=== PATIENT | female | born 1945 | race Caucasian/White ===

== ENCOUNTER 2016-08-04 21:07 | Inpatient (IN) | payer MEDICARE, OTHER ==
--- NOTE | 2016-08-04 21:42 | ED ---
Lower Extremity Injury HPI - General Chief Complaint: Extremity Injury, Lower Stated Complaint: fall Time Seen by Provider: 08/04/16 21:07 Source: patient, EMS, RN notes reviewed Mode of arrival: EMS Limitations: no limitations - History of Present Illness Initial Comments: 71-year-old female who states she broke stop left ankle she complains of left ankle pain and some left hip pain she did not fall hip over. She is was a head neck or back pain or extremity injury. She was given 100 g of fentanyl. She does admit to having several beers today MD Complaint: ankle injury - Related Data Home Medications Medication Instructions Recorded Confirmed No Known Home Medications [No 08/04/16 08/04/16 Known Home Medications] Allergies Allergy/AdvReac Type Severity Reaction Status Date / Time sulfamethoxazole Allergy Unknown Verified 08/04/16 21:32 [From Septra] trimethoprim [From Septra] Allergy Unknown Verified 08/04/16 21:32 propoxyphene [From Darvon] AdvReac "HEART Verified 08/04/16 21:32 RATE GOES UP" Review of Systems ROS Statement: Those systems with pertinent positive or pertinent negative responses have been documented in the HPI. ROS Other: All systems not noted in ROS Statement are negative. Past Medical History Past Medical History: Diabetes Mellitus, Hyperlipidemia Additional Past Medical History / Comment(s): Hepatitis A, Diet controlled DM, History of Any Multi-Drug Resistant Organisms: None Reported Past Surgical History: Orthopedic Surgery Additional Past Surgical History / Comment(s): R ankle surgery in 2007 Past Psychological History: No Psychological Hx Reported Smoking Status: Never smoker Past Alcohol Use History: Occasional Past Drug Use History: None Reported General Exam - General Exam Comments Initial Comments: This is a well-developed well-nourished awake alert oriented 3 female Limitations: no limitations General appearance: alert, in no apparent distress Head exam: Present: atraumatic, normocephalic, normal inspection Eye exam: Present: normal appearance, PERRL, EOMI. Absent: scleral icterus, conjunctival injection, periorbital swelling ENT exam: Present: normal exam, mucous membranes moist Neck exam: Present: normal inspection. Absent: tenderness, meningismus, lymphadenopathy Respiratory exam: Present: normal lung sounds bilaterally. Absent: respiratory distress, wheezes, rales, rhonchi, stridor Cardiovascular Exam: Present: regular rate, normal rhythm, normal heart sounds. Absent: systolic murmur, diastolic murmur, rubs, gallop, clicks GI/Abdominal exam: Present: soft, normal bowel sounds. Absent: distended, tenderness, guarding, rebound, rigid Extremities exam: Present: tenderness (Tenderness palpation over the left ankle with some edema noted also some ecchymosis to the medial aspect of the malleolus. No definite step-off or crepitation no tenderness proximal to the ankle no tenderness to the foot. Mild tenderness over left hip no step-off crepitation no shortening or rotation.), normal capillary refill. Absent: pedal edema, joint swelling, calf tenderness Back exam: Present: normal inspection Neurological exam: Present: alert, oriented X3, CN II-XII intact Psychiatric exam: Present: normal affect, normal mood Skin exam: Present: warm, dry, intact, normal color. Absent: rash Course Vital Signs 08/04/16 08/04/16 08/04/16 21:12 22:15 22:19 Temperature 98 F Pulse Rate 78 79 79 Respiratory 17 18 16 Rate Blood Pressure 205/99 187/88 182/86 O2 Sat by Pulse 97 100 100 Oximetry 08/04/16 08/04/16 08/04/16 22:24 22:29 22:44 Temperature Pulse Rate 66 65 75 Respiratory 17 16 16 Rate Blood Pressure 131/71 129/79 207/92 O2 Sat by Pulse 100 100 97 Oximetry 08/04/16 22:59 Temperature Pulse Rate 97 Respiratory 16 Rate Blood Pressure 172/85 O2 Sat by Pulse 97 Oximetry - Reevaluation(s) Reevaluation #1: 08/04/16 23:32 I did discuss findings with the patient family members. Patient requesting consultation by Dr. Álvarez. The patient will be admitted tonight. Procedures - Orthopedic Joint Reduction Joint #1 Consent Obtained: verbal consent Time Out Performed: Yes Side: left Joint Reduction Location: ankle Analgesia: procedural sedation Shoulder Technique Used (if applicable): other Technique Used: direct manipulation Post-Reduction Neuro Exam: intact Post-Reduction Vascular Exam: intact Post Reduction X-Ray Obtained: Yes (Good approximation of the dislocation fragments) Splint Applied: Yes (5 x 30 short leg posterior splint with Gonzales roll applied) Patient Tolerated Procedure: well - Procedural Sedation Procedural Sedation Start Time: 22:15 ASA Class: II Mallampati Airway Score: 2 Time of Last PO Intake: 18:00 Fentanyl: IV Fentanyl Dose: 50 IV Propofol Dose (mgs): 70 Complications: none Interventions: oxygen applied Patient Tolerated Procedure: well (Total in-service time 27 minutes patient was awake alert oriented and had no complications.) Medical Decision Making - Medical Decision Making I did discuss findings with orthopedics at the request of the patient patient will be admitted nothing by mouth after midnight medical clearance by Dr. Gordillo per request of - Lab Data Result diagrams: 08/04/16 23:01 Lab Results 08/04/16 Range/Units 23:01 WBC 8.4 (3.8-10.6) k/uL RBC 4.39 (3.80-5.40) m/uL Hgb 13.7 (11.4-16.0) gm/dL Hct 42.2 (34.0-46.0) % MCV 96.2 (80.0-100.0) fL MCH 31.2 (25.0-35.0) pg MCHC 32.4 (31.0-37.0) g/dL RDW 13.5 (11.5-15.5) % Plt Count 223 (150-450) k/uL Neutrophils % 83 % Lymphocytes % 11 % Monocytes % 3 % Eosinophils % 2 % Basophils % 0 % Neutrophils # 7.0 (1.3-7.7) k/uL Lymphocytes # 0.9 L (1.0-4.8) k/uL Monocytes # 0.3 (0-1.0) k/uL Eosinophils # 0.1 (0-0.7) k/uL Basophils # 0.0 (0-0.2) k/uL - EKG Data -: EKG Interpreted by Me EKG shows normal: sinus rhythm, axis, intervals, QRS complexes, ST-T waves ( Sinus rhythm of 75 HI interval 138 QRS 74 to T-System QTC of 46/453 st-t wave changes.) Rate: normal - Radiology Data Radiology results: report reviewed (I did review the imaging and reports. This did include the post reduction films. Patient does demonstrate a bimalleolar comminuted fracture of the left ankle.), image reviewed Disposition Clinical Impression: Fracture dislocation of left ankle Disposition: ADMITTED IP TO THIS HOSP Condition: Stable Referrals: Nonstaff,Physician [Primary Care Provider] - 1-2 days
--- NOTE | 2016-08-04 22:00 | XR ---
EXAMINATION TYPE: XR ankle complete LT DATE OF EXAM: 08/04/2016 COMPARISON: NONE HISTORY: Pain and swelling TECHNIQUE: 3 views FINDINGS: There is a bimalleolar fracture of the left ankle with lateral dislocation of the talus. Th ere is 3 cm lateral subluxation of the talus. IMPRESSION: Acute lateral bimalleolar fracture dislocation of the ankle.
--- NOTE | 2016-08-04 22:01 | XR ---
EXAMINATION TYPE: XR Hip Complete LT DATE OF EXAM: 08/04/2016 COMPARISON: NONE HISTORY: Hip pain TECHNIQUE: 2 views FINDINGS: I see no fracture nor dislocation. Acetabulum is intact. Hip joint space is fairly normal. IMPRESSION: Negative left hip exam.
[2016-08-04] MEDS ORDERED: PROPOFOL 10 MG/ML 50 ML VIAL IV ONE (22:04)
[2016-08-04] MEDS ORDERED: fentaNYL (PF) 50 MCG/ML 2 ML AMP IV ONE (22:05)
--- NOTE | 2016-08-04 23:04 | XR ---
EXAM: XR Left Ankle, 2 Views CLINICAL HISTORY: Reason: Postreduction TECHNIQUE: Frontal and lateral views of the left ankle. COMPARISON: Earlier left ankle radiographs of the same evening FINDINGS: Bones/joints: Interval application of external cast, and interval reduction of previous fracture-dislocation. There is improved alignment of the oblique distal fibular and horizontal medial malleolus fractures with note made of probable nondisplaced posterior malleolus fracture on the lateral view. There is persistent widening of the tibiotalar joint space, particularly medially, although overall alignment of the tibiotalar joint is improved including resolution of previous dislocation. Soft tissues: Generalized soft tissue swelling about the ankle. IMPRESSION: Interval reduction with improved alignment of trimalleolar fracture- dislocation, as above.
[2016-08-04 23:15] LABS: Basophils % (A) 0 %; CH 32.3; CHCM 33.7; Eosinophils # (A) 0.1 k/uL (0-0.7); Eosinophils % (A) 2 %; HCT 42.2 % (34.0-46.0); HDW 2.67; HGB 13.7 gm/dL (11.4-16.0); Luc # (Auto) 0.08; Luc % (Auto) 1; Lymphocytes # (A) 0.9 k/uL (1.0-4.8); Lymphocytes % (A) 11 %; MCH 31.2 pg (25.0-35.0); MCHC 32.4 g/dL (31.0-37.0); MCV 96.2 fL (80.0-100.0); Mean Platelet Volume 7.4; Monocytes # (A) 0.3 k/uL (0-1.0); Monocytes % (A) 3 %; Neutrophils % (A) 83 %; RBC 4.39 m/uL (3.80-5.40); RDW 13.5 % (11.5-15.5); WBC 8.4 k/uL (3.8-10.6); WBC (Perox) 8.87
[2016-08-04 23:32] LABS: Appearance,Urine Clear (Clear); Bilirubin,Urine Negative (Negative); Glucose,Urine (UA) Trace (Negative); Ketones,Urine Negative (Negative); Leukocyte Esterase,Urine Negative (Negative); Nitrite,Urine Negative (Negative); PH, Urine 6.5 (5.0-8.0); Protein,Urine Negative (Negative); Specific Gravity,Urine 1.008 (1.001-1.035); UA Billing (MACRO vs. MICRO) CHEM; Urobilinogen,Urine <2.0 mg/dL (<2.0)
[2016-08-04] MEDS ORDERED: ONDANSETRON 4 MG/2 ML VIAL IVP PRN (23:34)
[2016-08-04] MEDS ORDERED: HYDROmorphone 1 MG/ML 1 ML SYRINGE IV PRN (23:34)
[2016-08-04] MEDS ORDERED: NALOXONE 0.4 MG/ML 1 ML VIAL IV PRN (23:34)
[2016-08-04 23:36] LABS: ALT 24 U/L (9-52); AST 17 U/L (14-36); Alkaline Phosphatase 82 U/L (38-126); Anion Gap 16 mmol/L; Blood Urea Nitrogen 18 mg/dL (7-17); Calcium 8.7 mg/dL (8.4-10.2); Carbon Dioxide 18 mmol/L (22-30); Chloride 100 mmol/L (98-107); Glucose 130 mg/dL (74-99); Magnesium 1.9 mg/dL (1.6-2.3); Non-African American GFR(MDRD) >60 (>60 ml/min/1.73 sqM); Potassium 3.8 mmol/L (3.5-5.1); Sodium 134 mmol/L (137-145); Total Bilirubin 0.5 mg/dL (0.2-1.3); Total Protein 7.3 g/dL (6.3-8.2)
[2016-08-04 23:44] LABS: Partial Thromboplastin Time 24.3 sec (22.0-30.0); Prothrombin Time 10.2 sec (9.0-12.0)
[2016-08-04] MEDS: SODIUM CHLORIDE 0.9% 1,000 ML IV SCH (23:48)
[2016-08-04] MEDS ORDERED: SODIUM CHLORIDE 0.9% 500 ML IV STA (23:51)
[2016-08-04] MEDS ORDERED: ENALAPRILAT 1.25 MG/ML 1 ML VIAL IVP STA (23:52)
[2016-08-05] MEDS ORDERED: HEPARIN SODIUM,PORCINE 5,000 UNIT/ML 1 ML VIAL SQ SCH
[2016-08-05] MEDS ORDERED: ENALAPRILAT 1.25 MG/ML 1 ML VIAL IVP PRN (04:24)
--- NOTE | 2016-08-05 09:35 | P.HPOR ---
History of Present Illness H&P Date: 08/05/16 Chief Complaint: Left ankle fracture This is a 71-year-old female who is seen and evaluated at [facility] the night of 08/04/2016. She was brought to the emergency room after having a trip and fall incident at her house. She noted immediate pain and deformity of the left ankle. She was not able to bear weight. EMS brought patient to the emergency room, imaging lab tests were done. She complained of mild left hip pain and severe left ankle pain. Images of the left ankle demonstrated a trimalleolar fracture with dislocation. Images of the hip were negative for any acute fractures or dislocations. Patient did request our orthopedic care, Dr. Chacko contacted by the external position last night. He was able to review the case and images. Patient was admitted under orthopedic care for planning surgical intervention on 08/05/2016. Patient's ankle did require reduction, which was done with the emergency room staff, please see their note for further detail. Patient is evaluated today in the observation unit [facility]. She appears comfortable while resting in bed. She has a posterior splint with David bandage. She denies any significant pain involving the right lower extremity, bilateral upper extremities, cervical and lumbar spine. She admits to pain in the left hip is improved. She notes pain in the left ankle region with motion. She denies any chest pain, shortness of breath, lightheadedness, headaches, abdominal discomfort, fever or chills. Review of Systems Constitutional: Reports as per HPI Past Medical History Past Medical History: Diabetes Mellitus, Hyperlipidemia Additional Past Medical History / Comment(s): Hepatitis A, Diet controlled DM History of Any Multi-Drug Resistant Organisms: None Reported Past Surgical History: Orthopedic Surgery Additional Past Surgical History / Comment(s): R ankle surgery in 2007 Past Anesthesia/Blood Transfusion Reactions: No Reported Reaction Past Psychological History: No Psychological Hx Reported Smoking Status: Never smoker Past Drug Use History: None Reported - Past Family History Father Family Medical History: Diabetes Mellitus, Hypertension Mother Family Medical History: Cancer Additional Family Medical History / Comment(s): breast cancer Sister(s) Family Medical History: No Reported History Medications and Allergies Home Medications Medication Instructions Recorded Confirmed Type No Known Home Medications [No 08/04/16 08/05/16 History Known Home Medications] Allergies Allergy/AdvReac Type Severity Reaction Status Date / Time sulfamethoxazole Allergy Unknown Verified 08/05/16 01:42 [From Septra] trimethoprim [From Septra] Allergy Unknown Verified 08/05/16 01:42 propoxyphene [From Darvon] AdvReac "HEART Verified 08/05/16 01:42 RATE GOES UP" Physical Examination Left lower extremity: Splint is in good position with the David bandage The patient's toes are warm to touch, she can wiggle those with no difficulty. Her sensation to lite touch distal and proximal to the splint are intact Logroll maneuver reproduces no significant pain in the left hip Results - Labs Labs: Abnormal Lab Results - Last 24 Hours (Table) 08/04/16 08/04/16 08/04/16 Range/Units 23:01 23:01 23:20 Lymphocytes # 0.9 L (1.0-4.8) k/uL Sodium 134 L (137-145) mmol/L Carbon Dioxide 18 L (22-30) mmol/L BUN 18 H (7-17) mg/dL Glucose 130 H (74-99) mg/dL Urine Glucose (UA) Trace H (Negative) H & H 08/04/16 Range/Units 23:01 Hgb 13.7 (11.4-16.0) gm/dL Hct 42.2 (34.0-46.0) % Coagulation 08/04/16 Range/Units 23:27 INR 1.0 (<1.1) Result Diagrams: 08/04/16 23:01 08/04/16 23:01 - Diagnostic results Ankle/Foot x-ray: report reviewed, image reviewed Assessment and Plan Plan: Imaging: Multiple views of the left ankle were obtained. Images demonstrated a trimalleolar ankle fracture with dislocation. Post reduction x-rays were done, this demonstrated intact ankle joint, medial and lateral malleolus fractures are evident along with posterior fragment of the tibia. Imaging left hip were negative for any acute fractures or dislocations Assessment: 1. Bimalleolar ankle fracture status post closed reduction ankle dislocation 2. Status post fall from standing Plan: 1. Surgical intervention is recommended for this type of ankle fracture. Dr. Chacko is present today to discuss the procedure, this including the risk and benefits with the patient at bedside today. She understands this and would like to proceed. She was made nothing by mouth last night. 2. Obtain consent 3. Nonweightbearing left leg 4. NPO 5. Pain control 6. Further recommendations to follow Time with Patient: Less than 30
[2016-08-05 10:00] LABS: ALT 26 U/L (9-52); AST 16 U/L (14-36); Alkaline Phosphatase 78 U/L (38-126); Anion Gap 9 mmol/L; Blood Urea Nitrogen 12 mg/dL (7-17); Calcium 8.6 mg/dL (8.4-10.2); Carbon Dioxide 24 mmol/L (22-30); Chloride 102 mmol/L (98-107); Glucose 130 mg/dL (74-99); Non-African American GFR(MDRD) >60 (>60 ml/min/1.73 sqM); Sodium 135 mmol/L (137-145); Total Bilirubin 0.8 mg/dL (0.2-1.3); Total Protein 6.6 g/dL (6.3-8.2)
[2016-08-05 10:13] LABS: Basophils % (A) 0 %; CH 31.4; CHCM 34.4; Eosinophils % (A) 0 %; HCT 36.8 % (34.0-46.0); HDW 2.72; HGB 13.2 gm/dL (11.4-16.0); Luc # (Auto) 0.07; Luc % (Auto) 1; Lymphocytes # (A) 0.7 k/uL (1.0-4.8); Lymphocytes % (A) 9 %; MCH 32.9 pg (25.0-35.0); MCHC 35.8 g/dL (31.0-37.0); MCV 91.8 fL (80.0-100.0); Mean Platelet Volume 7.2; Monocytes # (A) 0.3 k/uL (0-1.0); Monocytes % (A) 3 %; Neutrophils # (A) 6.6 k/uL (1.3-7.7); Neutrophils % (A) 87 %; RDW 13.1 % (11.5-15.5); WBC 7.6 k/uL (3.8-10.6); WBC (Perox) 8.59
[2016-08-05] MEDS: SODIUM CHLORIDE 0.9% 1,000 ML IV SCH ×2 (10:44→17:16)
[2016-08-05] MEDS: PANTOPRAZOLE 40 MG/10 ML VIAL IV SCH (10:45)
[2016-08-05] MEDS ORDERED: IV FLUID CONTINUATION 1,000 ML IV ONE (10:47)
[2016-08-05] MEDS ORDERED: DEXAMETHASONE SOD PHOSPHATE 10 MG/ML 1 ML VIAL IV ONE (10:59)
[2016-08-05] MEDS ORDERED: ONDANSETRON 4 MG/2 ML VIAL IVP ONE (10:59)
[2016-08-05] MEDS ORDERED: LORazepam 2 MG/ML SYRINGE IV PRN ×3 (11:01)
[2016-08-05] MEDS ORDERED: THIAMINE 100 MG/ML 2 ML VIAL IM STA (11:01)
--- NOTE | 2016-08-05 11:10 | P.CONS ---
History of Present Illness - Reason for Consult Consult date: 08/05/16 Medical clearance Requesting physician: Gustabo Chacko - Chief Complaint Left ankle fracture - History of Present Illness This is a 71-year-old female with a known past medical history of diet- controlled diabetes mellitus and hyperlipidemia. It also appears patient may have history of alcohol abuse. She does report drinking about 3-4 beers a day especially since she has been with family here in [place]. Otherwise she lives in [place] and they're times when she goes without drinking alcohol. Patient's reports drinking about 3 beers yesterday was walking down some steps at the house and tripped and fell and fractured her left ankle. X-ray of the left ankle showed acute lateral bimalleolar fracture dislocation of the ankle. Left hip x-ray was negative. Patient was admitted to orthopedic service. And she is scheduled for surgical procedure this afternoon. We've been consulted for medical management. Patient had evidence of hypertensive emergency upon admission her blood pressure was 205/99. She did receive IV Vasotec. Blood pressure this morning is 143/70. Blood pressures are likely elevated due to her pain. Patient reports using herbal supplements at home. Otherwise she is not on any medications for her diabetes or hyperlipidemia. Patient denies any loss of consciousness, chest pain, shortness of breath, nausea or vomiting, bowel movement changes or burning with urination. She denies any fever chills or sweats. Patient did have some urinary retention requiring straight cathed in ER. Patient denies any cardiac history or pulmonary history. Review of Systems Please refer to HPI otherwise unremarkable Past Medical History Past Medical History: Diabetes Mellitus, Hyperlipidemia Additional Past Medical History / Comment(s): Hepatitis A, Diet controlled DM History of Any Multi-Drug Resistant Organisms: None Reported Past Surgical History: Orthopedic Surgery Additional Past Surgical History / Comment(s): R ankle surgery in 2007 Past Anesthesia/Blood Transfusion Reactions: No Reported Reaction Past Psychological History: No Psychological Hx Reported Smoking Status: Never smoker Past Drug Use History: None Reported - Past Family History Father Family Medical History: Diabetes Mellitus, Hypertension Mother Family Medical History: Cancer Additional Family Medical History / Comment(s): breast cancer Sister(s) Family Medical History: No Reported History Medications and Allergies Home Medications Medication Instructions Recorded Confirmed Type No Known Home Medications [No 08/04/16 08/05/16 History Known Home Medications] Allergies Allergy/AdvReac Type Severity Reaction Status Date / Time epinephrine Allergy Rapid Verified 08/05/16 10:53 Heart Rate sulfamethoxazole Allergy Unknown Verified 08/05/16 01:42 [From Septra] trimethoprim [From Septra] Allergy Unknown Verified 08/05/16 01:42 propoxyphene [From Darvon] AdvReac "HEART Verified 08/05/16 01:42 RATE GOES UP" Physical Exam Vitals: Vital Signs Temp Pulse Pulse Resp BP BP Pulse Ox 08/05/16 10:46 98.0 F 78 18 185/90 98 08/05/16 07:20 98.5 F 67 16 143/70 96 08/05/16 04:55 165/76 08/05/16 03:57 98.2 F 69 16 174/79 93 L 08/05/16 03:44 16 08/05/16 01:28 16 08/05/16 00:58 97.8 F 70 16 179/84 97 08/05/16 00:24 175/79 08/04/16 23:52 98 F 75 18 200/95 98 08/04/16 22:59 97 16 172/85 97 08/04/16 22:44 75 16 207/92 97 08/04/16 22:29 65 16 129/79 100 08/04/16 22:24 66 17 131/71 100 08/04/16 22:19 79 16 182/86 100 08/04/16 22:15 79 18 187/88 100 08/04/16 21:12 98 F 78 17 205/99 97 Intake and Output 08/04/16 08/05/16 08/05/16 22:59 06:59 14:59 Output Total 1100 Balance -1100 Output: Urine 1100 Straight 1100 Other: Voiding Method Bedpan Bedpan Weight 65.771 kg Head normocephalic Neck supple Lungs clear to auscultation bilaterally no wheezing or crackles Heart regular rate and rhythm S1-S2, no rub or gallop Abdomen is soft nontender nondistended positive bowel sounds no hepatosplenomegaly Extremities no edema. Left ankle is wrapped Neuro alert and orientated to 3 Results CBC & Chem 7: 08/05/16 09:21 08/05/16 09:21 Labs: Abnormal Lab Results - Last 24 Hours (Table) 08/04/16 08/04/16 08/04/16 Range/Units 23:01 23:01 23:20 Lymphocytes # 0.9 L (1.0-4.8) k/uL Sodium 134 L (137-145) mmol/L Carbon Dioxide 18 L (22-30) mmol/L BUN 18 H (7-17) mg/dL Glucose 130 H (74-99) mg/dL Urine Glucose (UA) Trace H (Negative) 08/05/16 08/05/16 Range/Units 09:21 09:21 Lymphocytes # 0.7 L (1.0-4.8) k/uL Sodium 135 L (137-145) mmol/L Carbon Dioxide (22-30) mmol/L BUN (7-17) mg/dL Glucose 130 H (74-99) mg/dL Urine Glucose (UA) (Negative) Assessment and Plan Plan: 1. Bimalleolar left ankle fracture status post closed reduction ankle dislocation. She is scheduled for surgical intervention with orthopedics afternoon. Patient is medically stable to proceed with surgery. EKG shows normal sinus rhythm. Urinalysis negative. No evidence of any acute infection. 2. Hypertensive emergency upon admission likely related to patient's pain. Continue with the IV Vasotec as needed 3. Type 2 diabetes mellitus diet controlled: Check hemoglobin A1c. Add sliding scale coverage with Accu-Cheks every before meals and each 4. Hyperlipidemia: Patient uses herbal supplements at home 5. Possible alcohol abuse: Add folic acid, thiamine and multivitamin. Add CIWA scale with Ativan as needed 6. Urinary retention: Patient had a be straight cathetered in the emergency room. She'll Bautista catheter place in the OR. GI prophylaxis Protonix and DVT prophylaxis per orthopedic protocol Time with Patient: Greater than 30 (Greater than 50% of the total time spent in counseling and coordination of care.I performed an examination of the patient and discussed their management with the physician Paralegal Instructor. I have reviewed the Physician Paralegal Instructor's notes and agree with the documented findings and plan of care)
[2016-08-05] MEDS ORDERED: PROPOFOL 10 MG/ML 20 ML VIAL IV ONE (12:31)
[2016-08-05] MEDS ORDERED: MIDAZOLAM 2 MG/2 ML VIAL ONE (12:31)
[2016-08-05] MEDS ORDERED: fentaNYL (PF) 50 MCG/ML 2 ML AMP ONE (12:31)
[2016-08-05] MEDS ORDERED: LACTATED RINGERS 1,000 ML IV ONE (12:32)
[2016-08-05] MEDS ORDERED: SODIUM CHLORIDE 0.9% 100 ML with ceFAZolin 2,000 MG IV ONE ×2 (12:48)
[2016-08-05 13:07] LABS: Hemoglobin A1C 5.4 % (4.2-6.1)
--- NOTE | 2016-08-05 13:55 | P.OP ---
Date of Procedure: 08/05/16 Preoperative Diagnosis: Displaced left ankle trimalleolar fracture Postoperative Diagnosis: Displaced left ankle trimalleolar fracture Procedure(s) Performed: Open reduction and internal fixation left ankle trimalleolar fracture Implants: Synthes small fragment set Anesthesia: spinal Surgeon: Gustabo Chacko Seismograph Chief #1: Antonio Hanson Estimated Blood Loss (ml): 20 Pathology: none sent Condition: stable Disposition: PACU Indications for Procedure: 71-year-old patient seen with a displaced left ankle trimalleolar fracture. I recommended open reduction and internal fixation. The patient was agreeable and consent was obtained. Operative Findings: see description of procedure Description of Procedure: The patient was taken to the operative suite. The patient underwent a spinal anesthetic by the department of anesthesia. She received preoperative IV antibiotics. A well-padded tourniquet was placed left proximal thigh. The left lower extremity was prepped and draped in the normal sterile orthopedic fashion. The extremity was elevated and tourniquet insufflated to 350. A lateral incision was made based over the lateral malleolus sharply through skin. Blunt dissection was taken down to the fracture. I used a periosteal elevator to expose the proximal and distal lateral malleolus. I reduced the fracture and secured it. I chose a 7 hole one third semitubular plate. This was contoured appropriate. This was secured appropriate. Appropriate drill holes were made proximally and distally. 6 screws were inserted 3 proximal 3 distal with good fixation noted. The central groove hole was laying over the fracture site. There was good stability of the fracture and good position of the internal fixation. This was confirmed on intraoperative imaging. I now made an incision over the medial malleolar sharply through skin. Dissection was taken down to the medial mortise. It was slightly comminuted insignificant displaced. We reduced and secured. 2 partially-threaded 4.0 screws were inserted both had good bite and purchase. The C-arm was brought in confirming adequate alignment of the fracture. There was presybeterian of the mortise. The posterior malleolar fracture was stable. Intraoperative spot films were obtained documenting this. The wounds were irrigated with normal saline. The subcu soft tissues were approximated 2-0 Vicryl. The skin was approximated with skin negrita. Sterile dressings were applied. The tourniquet was released and immediate capillary refill was noted of all digits. A modified bulky Bryant splint was now applied. Patient was awakened transferred to a bed and then recovery stable condition having tolerated procedure well. Louie MANCERA assisted procedure.
[2016-08-05] MEDS ORDERED: SENNOSIDES-DOCUSATE SODIUM 1 EACH TAB PO PRN (13:56)
[2016-08-05] MEDS ORDERED: HYDROcodone/APAP 5-325MG 1 EACH TAB PO PRN (13:56)
[2016-08-05] MEDS ORDERED: HYDROmorphone 1 MG/ML 1 ML SYRINGE IVP PRN ×2 (13:56)
--- NOTE | 2016-08-05 13:58 | XR ---
EXAMINATION TYPE: XR ankle limited LT DATE OF EXAM: 08/05/2016 COMPARISON: NONE HISTORY: Surgical x-ray FINDINGS: Two views of the ankle demonstrate surgical change which appears in near anatomic alignment. May be s light asymmetry of the ankle mortise and slight offset of the tibial talar joint correlate clinically . IMPRESSION: 1. Surgical change.
--- NOTE | 2016-08-05 13:59 | FL ---
EXAMINATION TYPE: FL guidance operating room DATE OF EXAM: 08/05/2016 HISTORY: Flouroscopy time 14 seconds of fluoroscopy provided. IMPRESSION: 1. Fluoroscopy time.
[2016-08-05 14:25] LABS: Glucose,Whole Blood 149 mg/dL (75-99)
[2016-08-05] MEDS ORDERED: SODIUM CHLORIDE 0.9% 1,000 ML IV ONE (14:36)
[2016-08-05] MEDS ORDERED: ceFAZolin 2 GM in SODIUM CHLORIDE 0.9% 100 ML IVPB SCH (16:00)
[2016-08-05] MEDS: FOLIC ACID 1 MG TAB PO SCH (16:26)
[2016-08-05] MEDS: THIAMINE 100 MG TAB PO SCH (16:26)
[2016-08-05] MEDS: MULTIVITAMINS, THERA 1 EACH TAB PO SCH (16:26)
[2016-08-05] MEDS: INSULIN LISPRO (humaLOG) 300 UNIT/3 ML VIAL SQ SCH ×3 (16:56→21:25)
[2016-08-05 17:23] LABS: Glucose,Whole Blood 158 mg/dL (75-99)
[2016-08-05] MEDS: traMADol 50 MG TAB PO SCH ×2 (18:06→21:28)
[2016-08-05 21:14] LABS: Glucose,Whole Blood 141 mg/dL (75-99)
[2016-08-05] MEDS: ceFAZolin 2 GM in SODIUM CHLORIDE 0.9% 100 ML IVPB SCH (21:25)
[2016-08-05] MEDS: HYDROcodone/APAP 5-325MG 1 EACH TAB PO PRN (22:54)
[2016-08-06] MEDS: ceFAZolin 2 GM in SODIUM CHLORIDE 0.9% 100 ML IVPB SCH (04:50)
[2016-08-06] MEDS: SODIUM CHLORIDE 0.9% 1,000 ML IV SCH ×3 (04:51→14:40)
[2016-08-06] MEDS: HYDROcodone/APAP 5-325MG 1 EACH TAB PO PRN (04:58)
[2016-08-06 07:29] LABS: Glucose,Whole Blood 125 mg/dL (75-99)
[2016-08-06] MEDS: INSULIN LISPRO (humaLOG) 300 UNIT/3 ML VIAL SQ SCH ×4 (08:03→21:32)
[2016-08-06] MEDS ORDERED: ENOXAPARIN 30 MG/0.3 ML SYRINGE SQ SCH (09:00)
[2016-08-06 09:36] LABS: Basophils % (A) 0 %; CH 31.4; CHCM 33.4; Eosinophils % (A) 1 %; HCT 33.8 % (34.0-46.0); HDW 2.64; HGB 11.1 gm/dL (11.4-16.0); Luc # (Auto) 0.11; Luc % (Auto) 1; Lymphocytes # (A) 1.2 k/uL (1.0-4.8); Lymphocytes % (A) 14 %; MCH 30.9 pg (25.0-35.0); MCHC 32.7 g/dL (31.0-37.0); MCV 94.5 fL (80.0-100.0); Mean Platelet Volume 7.5; Monocytes # (A) 0.4 k/uL (0-1.0); Monocytes % (A) 5 %; Neutrophils # (A) 6.3 k/uL (1.3-7.7); Neutrophils % (A) 79 %; RBC 3.58 m/uL (3.80-5.40); RDW 13.3 % (11.5-15.5); WBC (Perox) 8.59
[2016-08-06] MEDS: PANTOPRAZOLE 40 MG/10 ML VIAL IV SCH (09:38)
[2016-08-06 09:57] LABS: ALT 22 U/L (9-52); AST 16 U/L (14-36); Alkaline Phosphatase 61 U/L (38-126); Anion Gap 11 mmol/L; Blood Urea Nitrogen 16 mg/dL (7-17); Calcium 8.5 mg/dL (8.4-10.2); Carbon Dioxide 21 mmol/L (22-30); Chloride 98 mmol/L (98-107); Glucose 136 mg/dL (74-99); Non-African American GFR(MDRD) >60 (>60 ml/min/1.73 sqM); Potassium 4.1 mmol/L (3.5-5.1); Sodium 130 mmol/L (137-145); Total Bilirubin 0.5 mg/dL (0.2-1.3); Total Protein 5.8 g/dL (6.3-8.2)
--- NOTE | 2016-08-06 10:38 | XR ---
EXAMINATION TYPE: XR chest 1V portable DATE OF EXAM: 08/06/2016 COMPARISON: NONE HISTORY: ECF placement TECHNIQUE: Single frontal view of the chest is obtained. FINDINGS: There is no focal air space opacity, pleural effusion, or pneumothorax seen. The cardiac silhouette size is within normal limits. The osseous structures are intact. Heart size mildly promi nent. Curvature of the spine noted. IMPRESSION: No acute process.
[2016-08-06] MEDS: MULTIVITAMINS, THERA 1 EACH TAB PO SCH (11:06)
[2016-08-06] MEDS: FOLIC ACID 1 MG TAB PO SCH (11:06)
[2016-08-06] MEDS: traMADol 50 MG TAB PO SCH ×4 (11:06→21:33)
[2016-08-06] MEDS: THIAMINE 100 MG TAB PO SCH (11:06)
--- NOTE | 2016-08-06 11:07 | P.PN ---
Subjective Fall with left ankle fracture Patient underwent an ORIF of the left ankle. Pain is controlled. Blood pressures have shown improvement. Patient denies any chest pain or shortness of breath. Denies any nausea or vomiting. Reports having bowel movements. No further evidence of urinary retention. She is awaiting ECF placement. Objective - Vital Signs Vital signs: Vital Signs Temp 97.1 F L 08/06/16 07:00 Pulse 61 08/06/16 07:00 Resp 16 08/06/16 07:00 BP 139/67 08/06/16 07:00 Pulse Ox 95 08/06/16 07:00 Intake & Output 08/05/16 08/06/16 08/06/16 18:59 06:59 18:59 Intake Total 2125 Output Total 5 Balance 2119 Intake: IV 2124 Output: Estimated Blood Loss 5 Other: Voiding Method Bedpan Bedpan Bedpan # Voids 1 3 - Exam Head normocephalic Neck supple Lungs clear to auscultation bilaterally no wheezing or crackles Heart regular rate and rhythm S1-S2, no rub or gallop Abdomen is soft nontender nondistended positive bowel sounds no hepatosplenomegaly Extremities no edema. Left ankle is wrapped Neuro alert and orientated to 3 - Labs CBC & Chem 7: 08/06/16 09:14 08/06/16 09:14 Labs: Abnormal Lab Results - Last 24 Hours (Table) 08/05/16 08/05/16 08/05/16 Range/Units 14:24 17:21 21:04 RBC (3.80-5.40) m/uL Hgb (11.4-16.0) gm/dL Hct (34.0-46.0) % Sodium (137-145) mmol/L Carbon Dioxide (22-30) mmol/L Glucose (74-99) mg/dL POC Glucose (mg/dL) 149 H 158 H 141 H (75-99) mg/dL Total Protein (6.3-8.2) g/dL Albumin (3.5-5.0) g/dL 08/06/16 08/06/16 08/06/16 Range/Units 07:23 09:14 09:14 RBC 3.58 L (3.80-5.40) m/uL Hgb 11.1 L (11.4-16.0) gm/dL Hct 33.8 L (34.0-46.0) % Sodium 130 L (137-145) mmol/L Carbon Dioxide 21 L (22-30) mmol/L Glucose 136 H (74-99) mg/dL POC Glucose (mg/dL) 125 H (75-99) mg/dL Total Protein 5.8 L (6.3-8.2) g/dL Albumin 3.4 L (3.5-5.0) g/dL Assessment and Plan Plan: 1. Bimalleolar left ankle fracture status post closed reduction ankle dislocation. And status post open reduction internal fixation. She postop day #1. 2. Hypertensive emergency upon admission likely related to patient's pain. Continue with the IV Vasotec as needed. Now resolved 3. Type 2 diabetes mellitus diet controlled: Hemoglobin A1c 5.4. Blood sugar this morning was 125. Continue to monitor and continue sliding scale 4. Hyperlipidemia: Patient uses herbal supplements at home 5. Possible alcohol abuse: Add folic acid, thiamine and multivitamin. Add CIWA scale with Ativan as needed. Patient has not been requiring the Ativan 6. Urinary retention: Patient had a be straight cathetered in the emergency room. Resolved 7. Hyponatremia: Continue with IV fluids. Repeat sodium level in morning Continue physical therapy. Patient is awaiting placement to ECF. GI prophylaxis Protonix and DVT prophylaxis Lovenox I performed an examination of the patient and discussed their management with the physician Line Cook. I have reviewed the Physician Line Cook's notes and agree with the documented findings and plan of care
[2016-08-06 11:48] LABS: Glucose,Whole Blood 112 mg/dL (75-99)
--- NOTE | 2016-08-06 12:09 | P.PN ---
Subjective Principal diagnosis: Status post ORIF displaced left trimalleolar ankle fracture Patient is seen today resting in her hospital bed, she appears comfortable. Her pain is well-controlled. She denies any chest pain, shortness of breath, lightheadedness, headaches. Objective - Vital Signs Vital signs: Vital Signs Temp 97.1 F L 08/06/16 07:00 Pulse 61 08/06/16 07:00 Resp 16 08/06/16 07:00 BP 139/67 08/06/16 07:00 Pulse Ox 95 08/06/16 07:00 Intake & Output 08/05/16 08/06/16 08/06/16 18:59 06:59 18:59 Intake Total 2125 Output Total 5 Balance 2119 Intake: IV 2124 Output: Estimated Blood Loss 5 Other: Voiding Method Bedpan Bedpan Bedpan # Voids 1 3 - Exam Left lower extremity: Postoperative splint is in good position and condition. Her sensation to light touch both proximal distal to the splinter intact She is able to wiggle all the toes no difficulty, the skin is warm to touch - Labs CBC & Chem 7: 08/06/16 09:14 08/06/16 09:14 Labs: Abnormal Lab Results - Last 24 Hours (Table) 08/05/16 08/05/16 08/05/16 Range/Units 14:24 17:21 21:04 RBC (3.80-5.40) m/uL Hgb (11.4-16.0) gm/dL Hct (34.0-46.0) % Sodium (137-145) mmol/L Carbon Dioxide (22-30) mmol/L Glucose (74-99) mg/dL POC Glucose (mg/dL) 149 H 158 H 141 H (75-99) mg/dL Total Protein (6.3-8.2) g/dL Albumin (3.5-5.0) g/dL 08/06/16 08/06/16 08/06/16 Range/Units 07:23 09:14 09:14 RBC 3.58 L (3.80-5.40) m/uL Hgb 11.1 L (11.4-16.0) gm/dL Hct 33.8 L (34.0-46.0) % Sodium 130 L (137-145) mmol/L Carbon Dioxide 21 L (22-30) mmol/L Glucose 136 H (74-99) mg/dL POC Glucose (mg/dL) 125 H (75-99) mg/dL Total Protein 5.8 L (6.3-8.2) g/dL Albumin 3.4 L (3.5-5.0) g/dL 08/06/16 Range/Units 11:46 RBC (3.80-5.40) m/uL Hgb (11.4-16.0) gm/dL Hct (34.0-46.0) % Sodium (137-145) mmol/L Carbon Dioxide (22-30) mmol/L Glucose (74-99) mg/dL POC Glucose (mg/dL) 112 H (75-99) mg/dL Total Protein (6.3-8.2) g/dL Albumin (3.5-5.0) g/dL Assessment and Plan Plan: Assessment: 1. Postop day #1 status post ORIF left displaced trimalleolar ankle fracture Plan: 1. Pain control, continue supportive oral medication 2. Nonweightbearing left lower extremity 3. Advised elevating the extremity often 4. GI and DVT prophylaxis, continue supportive Lovenox during inpatient stay 5. Medical recommendations 6. Encourage incentive spirometer 7. Discharge planning: Patient will be likely discharge to rehab on Tuesday Time with Patient: Less than 30
--- NOTE | 2016-08-06 12:12 | P.DS ---
Providers Date of admission: 08/05/16 08:21 Expected date of discharge: 08/09/16 Attending physician: Gustabo Chacko Consults: 08/04/16 23:36 Consult Physician Urgent Consulting Provider: Carlos Gordillo Consult Reason/Comments: Medical management and clearance for surgery Do you want consulting provider notified?: Yes Primary care physician: Physician Nonstaff Hospital Course: Date of admission: 08/04/2016 Date of discharge: 08/09/2016 Admission diagnosis: Displaced left trimalleolar ankle fracture Discharge diagnosis: Status post ORIF left trimalleolar ankle fracture Attending physician: Dr. Chacko Surgical procedures: Open reduction internal fixation left trimalleolar ankle fracture Brief history: Patient is a 71-year-old female who is seen and evaluated and [facility] emergency room the night of 08/04/2016 after sustaining a fall at home. Patient had twisted the ankle and had immediate pain and was unable to weight-bear. Upon arrival to the ER, imaging studies demonstrated a displaced left trimalleolar ankle fracture with dislocation. Dr. Chacko was contacted via the emergency room staff, the case was discussed. Plan for surgery on 08/05/2016 was scheduled. She had underwent a closed reduction in the emergency room by the emergency room physician. Hospital course: Details of patient's surgery can be found in operative report. Patient tolerated the procedure well and was subsequently transported to orthopedic floor. Patient's orthopeidc and medical care was provided daily. Patient had daily laboratory tests performed for evaluation of overall blood counts. Patient had daily physical therapy to include strengthening range of motion as well as education with walker ambulation. Patient was treated with Lovenox for their postoperative DVT prophylaxis during their inpatient stay. Patient was noted to have a relatively uneventful postoperative course. Patient reported satisfactory pain control with oral pain medications by postoperative day 0. Patient showed satisfactory progress with physical therapy. Patient moved steadily through the program and had no difficulty meeting the goals by postoperative day 4. Given patient's otherwise satisfactory course and having met physical therapy goals, plan is to discharge patient rehab on postoperative day 4. Discharge condition/disposition: Patient will be discharged rehab in stable condition. Discharge medications: Instructions are given on resumption of patient's normal daily medications per primary care recommendation, in addition patient will be prescribed aspirin 325 mg, [place] 5 mg/325 mg. Discharge instructions: 1. Keep splint clean and dry, do not remove. Keep covered while showering 2. Nonweightbearing left lower extremity 3. Ice and elevate when necessary. Do not exceed 20 minutes per hour with ice pack. 4. Pain meds and anticoagulants per prescription. 5. Pain medication has potential to cause constipation. Increase oral fluid and fiber intake. Contact primary care provider if you have not had a bowel movement within 48 hours after discharge 6. Follow up in office at 2 weeks postop with Louie Hanson PA-C 7. Follow up with your primary care doctor 7-10 days after discharge. Anticoagulation instructions: 1. Utilize aspirin 325 mg once a day for DVT prophylaxis Procedures: Open reduction internal fixation displaced left trimalleolar ankle fracture Patient Condition at Discharge: Good Plan - Discharge Summary New Discharge Prescriptions: New Aspirin 325 mg PO DAILY #30 tab Hydrocodone/Acetaminophen [[place] 5-325] 1 each PO Q6HR PRN #60 tab PRN Reason: Pain Discharge Medication List Aspirin 325 mg PO DAILY #30 tab 08/09/16 [Rx] Hydrocodone/Acetaminophen [[place] 5-325] 1 each PO Q6HR PRN #60 tab 08/09/16 [Rx] Follow up Appointment(s)/Referral(s): Nonstaff,Physician [Primary Care Provider] - 1-2 days Antonio Hanson PAC [PHYSICIAN [employer]] - 2 Weeks Patient Instructions/Handouts: Type 2 Diabetes in Adults (DC) Activity/Diet/Wound Care/Special Instructions: Orthopedic Discharge Instructions: 1. Keep the splint clean and dry, keep covered while showering 2. Nonweightbearing left lower extremity 3. Ice and elevate when necessary. Do not exceed 20 minutes per hour with ice pack. 4. Pain meds and anticoagulants per prescription. 5. Pain medication has potential to cause constipation. Increase oral fluid and fiber intake. Contact primary care provider if you have not had a bowel movement within 48 hours after discharge. 6. Follow up in office at 2 weeks postop with Louie Hanson PA-C 7. Follow up with your primary care doctor 7-10 days after discharge. 8. Contact [facility] with any questions, . Discharge Disposition: TRANSFER TO SNF/ECF
[2016-08-06 16:49] LABS: Glucose,Whole Blood 103 mg/dL (75-99)
[2016-08-06 20:55] LABS: Glucose,Whole Blood 137 mg/dL (75-99)
[2016-08-07] MEDS: SODIUM CHLORIDE 0.9% 1,000 ML IV SCH ×3 (03:01→17:05)
[2016-08-07] MEDS: INSULIN LISPRO (humaLOG) 300 UNIT/3 ML VIAL SQ SCH ×4 (07:23→21:08)
[2016-08-07 07:25] LABS: Glucose,Whole Blood 111 mg/dL (75-99)
[2016-08-07 08:00] VITALS: RESP 16
[2016-08-07] MEDS: ENOXAPARIN 40 MG/0.4 ML SYRINGE SQ SCH (10:06)
[2016-08-07] MEDS: PANTOPRAZOLE 40 MG TABLET PO SCH (10:07)
[2016-08-07 10:55] LABS: Basophils % (A) 0 %; CH 31.4; CHCM 33.3; Eosinophils # (A) 0.1 k/uL (0-0.7); Eosinophils % (A) 1 %; HCT 32.6 % (34.0-46.0); HDW 2.57; HGB 10.5 gm/dL (11.4-16.0); Luc # (Auto) 0.06; Luc % (Auto) 1; Lymphocytes # (A) 0.8 k/uL (1.0-4.8); Lymphocytes % (A) 13 %; MCH 30.6 pg (25.0-35.0); MCHC 32.2 g/dL (31.0-37.0); Monocytes # (A) 0.5 k/uL (0-1.0); Monocytes % (A) 7 %; Neutrophils % (A) 78 %; RBC 3.44 m/uL (3.80-5.40); RDW 13.4 % (11.5-15.5); WBC 6.4 k/uL (3.8-10.6)
[2016-08-07 11:08] LABS: ALT 17 U/L (9-52); AST 13 U/L (14-36); Alkaline Phosphatase 53 U/L (38-126); Anion Gap 9 mmol/L; Blood Urea Nitrogen 15 mg/dL (7-17); Calcium 8.1 mg/dL (8.4-10.2); Carbon Dioxide 24 mmol/L (22-30); Chloride 102 mmol/L (98-107); Glucose 114 mg/dL (74-99); Non-African American GFR(MDRD) >60 (>60 ml/min/1.73 sqM); Sodium 135 mmol/L (137-145); Total Bilirubin 0.6 mg/dL (0.2-1.3); Total Protein 5.7 g/dL (6.3-8.2)
[2016-08-07] MEDS: MULTIVITAMINS, THERA 1 EACH TAB PO SCH (11:23)
[2016-08-07] MEDS: THIAMINE 100 MG TAB PO SCH (11:23)
[2016-08-07] MEDS: FOLIC ACID 1 MG TAB PO SCH (11:23)
[2016-08-07 11:45] LABS: Glucose,Whole Blood 98 mg/dL (75-99)
--- NOTE | 2016-08-07 12:13 | P.PN ---
Progress Note - Text Patient seen lying in bed comfortably. She reports minimal discomfort. Splint is in place. Patient is able to move toes without pain. Distal neurovascular exam is intact. Impression: 1. Status post open reduction and internal fixation left ankle trimalleolar fracture Plan: 1. Physical therapy for walker ambulation-nonweightbearing left lower extremity 2. Medical management 3. Await transfer to rehab
[2016-08-07] MEDS: traMADol 50 MG TAB PO SCH ×4 (14:21→21:09)
[2016-08-07 16:56] LABS: Glucose,Whole Blood 134 mg/dL (75-99)
[2016-08-07 20:35] LABS: Glucose,Whole Blood 158 mg/dL (75-99)
[2016-08-08] MEDS: HYDROcodone/APAP 5-325MG 1 EACH TAB PO PRN (03:14)
[2016-08-08 07:15] LABS: Glucose,Whole Blood 130 mg/dL (75-99)
[2016-08-08 08:49] LABS: ALT 20 U/L (9-52); AST 14 U/L (14-36); Alkaline Phosphatase 62 U/L (38-126); Anion Gap 7 mmol/L; Blood Urea Nitrogen 11 mg/dL (7-17); Calcium 8.3 mg/dL (8.4-10.2); Carbon Dioxide 28 mmol/L (22-30); Chloride 102 mmol/L (98-107); Glucose 124 mg/dL (74-99); Non-African American GFR(MDRD) >60 (>60 ml/min/1.73 sqM); Potassium 4.1 mmol/L (3.5-5.1); Sodium 137 mmol/L (137-145); Total Bilirubin 0.8 mg/dL (0.2-1.3); Total Protein 5.5 g/dL (6.3-8.2)
[2016-08-08 09:43] LABS: Basophils % (A) 1 %; CH 31.8; CHCM 33.3; Eosinophils # (A) 0.1 k/uL (0-0.7); Eosinophils % (A) 2 %; HCT 32.3 % (34.0-46.0); HDW 2.56; HGB 10.4 gm/dL (11.4-16.0); Luc # (Auto) 0.08; Luc % (Auto) 2; Lymphocytes # (A) 1.2 k/uL (1.0-4.8); Lymphocytes % (A) 22 %; MCH 30.9 pg (25.0-35.0); MCHC 32.1 g/dL (31.0-37.0); MCV 96.1 fL (80.0-100.0); Mean Platelet Volume 7.7; Monocytes # (A) 0.4 k/uL (0-1.0); Monocytes % (A) 8 %; Neutrophils # (A) 3.6 k/uL (1.3-7.7); Neutrophils % (A) 66 %; RBC 3.36 m/uL (3.80-5.40); RDW 13.4 % (11.5-15.5); WBC 5.4 k/uL (3.8-10.6); WBC (Perox) 5.87
[2016-08-08] MEDS: SODIUM CHLORIDE 0.9% 1,000 ML IV SCH ×4 (10:44→21:19)
[2016-08-08] MEDS: ENOXAPARIN 40 MG/0.4 ML SYRINGE SQ SCH (10:45)
[2016-08-08] MEDS: INSULIN LISPRO (humaLOG) 300 UNIT/3 ML VIAL SQ SCH ×4 (10:45→21:13)
[2016-08-08] MEDS: traMADol 50 MG TAB PO SCH ×4 (10:45→21:17)
[2016-08-08] MEDS: PANTOPRAZOLE 40 MG TABLET PO SCH (10:45)
[2016-08-08 11:30] LABS: Glucose,Whole Blood 95 mg/dL (75-99)
--- NOTE | 2016-08-08 11:52 | P.PN ---
Progress Note - Text Patient seen in bed. No new complaints. Splint in place. Painless ROM toes. Distal NVI. Impression: 1. S/P ORIF Left Anlke Trimalleolar FX Plan: 1. Current program 2. Await Rehab placement
[2016-08-08] MEDS: MULTIVITAMINS, THERA 1 EACH TAB PO SCH (14:02)
[2016-08-08] MEDS: FOLIC ACID 1 MG TAB PO SCH (14:02)
[2016-08-08] MEDS: THIAMINE 100 MG TAB PO SCH (14:02)
[2016-08-08 16:50] LABS: Glucose,Whole Blood 189 mg/dL (75-99)
[2016-08-08 21:03] LABS: Glucose,Whole Blood 178 mg/dL (75-99)
[2016-08-09 07:11] LABS: Glucose,Whole Blood 106 mg/dL (75-99)
[2016-08-09 07:29] LABS: Basophils % (A) 0 %; CH 31.8; CHCM 33.7; Eosinophils # (A) 0.2 k/uL (0-0.7); Eosinophils % (A) 3 %; HCT 32.1 % (34.0-46.0); HDW 2.65; HGB 10.4 gm/dL (11.4-16.0); Luc # (Auto) 0.11; Luc % (Auto) 2; Lymphocytes # (A) 1.3 k/uL (1.0-4.8); Lymphocytes % (A) 22 %; MCH 30.9 pg (25.0-35.0); MCHC 32.6 g/dL (31.0-37.0); MCV 94.7 fL (80.0-100.0); Mean Platelet Volume 7.7; Monocytes # (A) 0.4 k/uL (0-1.0); Monocytes % (A) 6 %; Neutrophils # (A) 3.9 k/uL (1.3-7.7); Neutrophils % (A) 67 %; RBC 3.39 m/uL (3.80-5.40); RDW 13.3 % (11.5-15.5); WBC 5.8 k/uL (3.8-10.6)
[2016-08-09] MEDS: traMADol 50 MG TAB PO SCH ×2 (07:37→13:34)
[2016-08-09] MEDS: PANTOPRAZOLE 40 MG TABLET PO SCH (07:37)
[2016-08-09] MEDS: ENOXAPARIN 40 MG/0.4 ML SYRINGE SQ SCH (07:38)
[2016-08-09] MEDS: INSULIN LISPRO (humaLOG) 300 UNIT/3 ML VIAL SQ SCH ×2 (07:40→12:39)
[2016-08-09 07:52] LABS: Anion Gap 7 mmol/L; Carbon Dioxide 27 mmol/L (22-30); Chloride 103 mmol/L (98-107); Glucose 110 mg/dL (74-99); Potassium 4.2 mmol/L (3.5-5.1); Sodium 137 mmol/L (137-145); Total Protein 5.6 g/dL (6.3-8.2)
[2016-08-09 07:53] LABS: ALT 33 U/L (9-52); AST 25 U/L (14-36); Alkaline Phosphatase 66 U/L (38-126); Blood Urea Nitrogen 12 mg/dL (7-17); Calcium 8.3 mg/dL (8.4-10.2); Non-African American GFR(MDRD) >60 (>60 ml/min/1.73 sqM); Total Bilirubin 0.6 mg/dL (0.2-1.3)
[2016-08-09] MEDS: SODIUM CHLORIDE 0.9% 1,000 ML IV SCH (08:43)
--- NOTE | 2016-08-09 09:47 | P.PN ---
Subjective Principal diagnosis: Status post ORIF displaced left trimalleolar ankle fracture Patient is seen today resting in her hospital bed, she appears comfortable. Her pain is well-controlled. She denies any chest pain, shortness of breath, lightheadedness, headaches. Objective - Vital Signs Vital signs: Vital Signs Temp 97.4 F L 08/09/16 07:00 Pulse 67 08/09/16 07:00 Resp 16 08/09/16 07:00 BP 135/76 08/09/16 07:00 Pulse Ox 96 08/09/16 07:00 Intake & Output 08/08/16 08/09/16 08/09/16 18:59 06:59 18:59 Intake Total 2049 Balance 2049 Intake: Oral 2049 Other: Voiding Method Bedpan Bedpan # Voids 1 1 - Exam Left lower extremity: Postoperative splint is in good position and condition. Her sensation to light touch both proximal distal to the splinter intact She is able to wiggle all the toes no difficulty, the skin is warm to touch - Labs CBC & Chem 7: 08/09/16 07:03 08/09/16 07:00 Labs: Abnormal Lab Results - Last 24 Hours (Table) 08/08/16 08/08/16 08/08/16 Range/Units 07:40 16:47 21:01 RBC 3.36 L (3.80-5.40) m/uL Hgb 10.4 L (11.4-16.0) gm/dL Hct 32.3 L (34.0-46.0) % Glucose (74-99) mg/dL POC Glucose (mg/dL) 189 H 178 H (75-99) mg/dL Calcium (8.4-10.2) mg/dL Total Protein (6.3-8.2) g/dL Albumin (3.5-5.0) g/dL 08/09/16 08/09/16 08/09/16 Range/Units 07:00 07:03 07:09 RBC 3.39 L (3.80-5.40) m/uL Hgb 10.4 L (11.4-16.0) gm/dL Hct 32.1 L (34.0-46.0) % Glucose 110 H (74-99) mg/dL POC Glucose (mg/dL) 106 H (75-99) mg/dL Calcium 8.3 L (8.4-10.2) mg/dL Total Protein 5.6 L (6.3-8.2) g/dL Albumin 2.9 L (3.5-5.0) g/dL Assessment and Plan Plan: Assessment: 1. Postop day #4 status post ORIF left displaced trimalleolar ankle fracture Plan: 1. Pain control, we'll discharge on [place] 5 mg/325 mg 2. Nonweightbearing left lower extremity 3. Advised elevating the extremity often 4. GI and DVT prophylaxis, aspirin 325 mg once a day after discharge 5. Medical recommendations 6. Encourage incentive spirometer 7. Discharge planning: Discharge to rehab today Time with Patient: Less than 30
[2016-08-09] MEDS ORDERED: LACTULOSE 20 GM/30 ML CUP PO ONE (10:39)
--- NOTE | 2016-08-09 10:47 | P.PN ---
Subjective Fall with left ankle fracture Patient underwent an ORIF of the left ankle. Pain is controlled. Blood pressures have shown improvement. Patient denies any chest pain or shortness of breath. Denies any nausea or vomiting. Patient reporting that she has not had a bowel movement since she's been here. Denies any difficulty urinating. She is scheduled for ECF placement today Objective - Vital Signs Vital signs: Vital Signs Temp 97.4 F L 08/09/16 07:00 Pulse 67 08/09/16 07:00 Resp 16 08/09/16 07:00 BP 135/76 08/09/16 07:00 Pulse Ox 96 08/09/16 07:00 Intake & Output 08/08/16 08/09/16 08/09/16 18:59 06:59 18:59 Intake Total 2049 Balance 2049 Intake: Oral 2049 Other: Voiding Method Bedpan Bedpan # Voids 1 1 - Exam Head normocephalic Neck supple Lungs clear to auscultation bilaterally no wheezing or crackles Heart regular rate and rhythm S1-S2, no rub or gallop Abdomen is soft nontender nondistended positive bowel sounds no hepatosplenomegaly Extremities no edema. Left ankle is wrapped Neuro alert and orientated to 3 - Labs CBC & Chem 7: 08/09/16 07:03 08/09/16 07:00 Labs: Abnormal Lab Results - Last 24 Hours (Table) 08/08/16 08/08/16 08/09/16 Range/Units 16:47 21:01 07:00 RBC (3.80-5.40) m/uL Hgb (11.4-16.0) gm/dL Hct (34.0-46.0) % Glucose 110 H (74-99) mg/dL POC Glucose (mg/dL) 189 H 178 H (75-99) mg/dL Calcium 8.3 L (8.4-10.2) mg/dL Total Protein 5.6 L (6.3-8.2) g/dL Albumin 2.9 L (3.5-5.0) g/dL 08/09/16 08/09/16 Range/Units 07:03 07:09 RBC 3.39 L (3.80-5.40) m/uL Hgb 10.4 L (11.4-16.0) gm/dL Hct 32.1 L (34.0-46.0) % Glucose (74-99) mg/dL POC Glucose (mg/dL) 106 H (75-99) mg/dL Calcium (8.4-10.2) mg/dL Total Protein (6.3-8.2) g/dL Albumin (3.5-5.0) g/dL Assessment and Plan Plan: 1. Bimalleolar left ankle fracture status post closed reduction ankle dislocation. And status post open reduction internal fixation. Orthopedics are discharging patient with an aspirin 325 mg by mouth daily 2. Hypertensive emergency upon admission likely related to patient's pain. Continue with the IV Vasotec as needed. Now resolved 3. Type 2 diabetes mellitus diet controlled: Hemoglobin A1c 5.4. Patient is a prediabetic. Continue with diabetic diet. 4. Hyperlipidemia: Patient uses herbal supplements at home 5. Possible alcohol abuse: Patient has not required any IV Ativan per [facility] protocol. She does not require full casted, thiamine and multivitamin at discharge 6. Urinary retention: Patient had a be straight cathetered in the emergency room. Resolved 7. Hyponatremia: Resolved 8. Constipation: We'll give 1 dose of lactulose before discharge 9. Anemia possibly due to expected postop anemia. We'll place patient on ferrous sulfate 325 milligrams twice a day for a month. Check CBC in 1 week. Also will add stool softener help with any constipation Patient scheduled for discharge to [facility]. Patient is medically stable for discharge. Recommend checking CBC in 1 week GI prophylaxis Protonix and DVT prophylaxis Lovenox I performed an examination of the patient and discussed their management with the physician Strategic Intelligence Officer. I have reviewed the Physician Strategic Intelligence Officer's notes and agree with the documented findings and plan of care
[2016-08-09] MEDS: MULTIVITAMINS, THERA 1 EACH TAB PO SCH (11:13)
[2016-08-09] MEDS: FOLIC ACID 1 MG TAB PO SCH (11:14)
[2016-08-09] MEDS: THIAMINE 100 MG TAB PO SCH (11:14)
[2016-08-09 12:17] LABS: Glucose,Whole Blood 106 mg/dL (75-99)
[2016-08-09 15:55] VITALS: BP 134/79; PULSE 69; TEMP 98.3
== END 2016-08-09 15:34 | DRG 493 ==
LOC: EC 21:07 → 3OBS 23:34 → OBSVTOIN 08-05 08:21 → 4MS4W 08-05 10:45
PROVIDERS: ADMIT Orthopaedic Surgery; ATTEND Orthopaedic Surgery
PROC: 0QSK04Z Reposition Left Fibula with Internal Fixation Device, Open Approach (ICD-10-PCS; 2016-08-05)
PROC: 0QSH04Z Reposition Left Tibia with Internal Fixation Device, Open Approach (ICD-10-PCS; principal; 2016-08-05 12:30)
DX: S82.852A Displaced trimalleolar fracture of left lower leg, initial encounter for closed fracture (principal); I16.1 Hypertensive emergency; E87.1 Hypo-osmolality and hyponatremia; E11.9 Type 2 diabetes mellitus without complications; E78.5 Hyperlipidemia, unspecified; F10.10 Alcohol abuse, uncomplicated; K59.00 Constipation, unspecified; R33.9 Retention of urine, unspecified; Z88.2 Allergy status to sulfonamides; Z88.8 Allergy status to other drugs, medicaments and biological substances; Z86.19 Personal history of other infectious and parasitic diseases; Y30.XXXA Falling, jumping or pushed from a high place, undetermined intent, initial encounter; Y92.007 Garden or yard of unspecified non-institutional (private) residence as the place of occurrence of the external cause; Y93.01 Activity, walking, marching and hiking
CPT/HCPCS: 27810; 36415; 71010; 73502; 80053; 81003; 83036; 83735; 85025; 85610; 85730; 93005; 96361; 96374; 99152; 99285